=== PATIENT | male | born 1990 | race Caucasian/White ===

== ENCOUNTER 2024-01-17 15:54 | Emergency (ER) | payer SELFPAY ==
[~2024-01-17] VITALS: Ht 177.8 cm; Wt 109.0 kg
[2024-01-17 16:16] VITALS: O2SAT 97
[2024-01-17] MEDS ORDERED: T3 PO (17:16)
[2024-01-17] MEDS ORDERED: IBUP-2029 MT (17:16)
[2024-01-17 17:54] VITALS: BP 124/82; PULSE 100; RESP 18; TEMP 36.94740; O2SAT 97
== END 2024-01-17 17:55 | disposition home or self-care (01) ==
LOC: ER 15:54
DX: M79.641 Pain in right hand (principal)
CPT/HCPCS: 29125; 73130; 99283